=== PATIENT | female | born 1975 | race Hispanic/Latino ===

== ENCOUNTER → 2024-01-28 | Outpatient (CLI) | payer OTHER | END | disposition home or self-care (01) | LOC: RAH 11:45 | PROVIDERS: ATTEND Internal Medicine | DX: E04.1 Nontoxic single thyroid nodule (principal) | CPT/HCPCS: 76536 ==

== ENCOUNTER → 2025-03-18 | Outpatient (CLI) | payer OTHER ==
--- NOTE | 2025-03-19 05:55 | HMCIMG ---
EXAM: CR Right Knee, 3 views. CLINICAL HISTORY: Pain. COMPARISON: None provided. FINDINGS: No acute fracture or aggressive appearing osseous lesion. Joint spaces is reduced. Osteophytic lipping of articular margin is noted. Generalized osteopenia is seen. There is no joint effusion appreciated. The soft tissues are unremarkable. IMPRESSION: 1. No acute osseous abnormality. Osteoarthritis. /[place]
== END | disposition home or self-care (01) ==
LOC: RAH 15:23
PROVIDERS: ATTEND Internal Medicine
DX: S83.241A Other tear of medial meniscus, current injury, right knee, initial encounter (principal); M23.91 Unspecified internal derangement of right knee; M17.11 Unilateral primary osteoarthritis, right knee; M25.761 Osteophyte, right knee; M85.88 Other specified disorders of bone density and structure, other site; X58.XXXA Exposure to other specified factors, initial encounter; Y93.89 Activity, other specified; Y92.89 Other specified places as the place of occurrence of the external cause; Y99.8 Other external cause status
CPT/HCPCS: 73560

== ENCOUNTER → 2025-03-25 | Outpatient (CLI) | payer OTHER ==
--- NOTE | 2025-03-25 22:27 | HMCIMG ---
EXAM: MR KNEE RIGHT CLINICAL HISTORY: other tear of medial meniscus, current injury, initial. TECHNIQUE: Multiplanar magnetic resonance images of the right knee obtained. CONTRAST: NONE COMPARISON: A prior radiograph of the right knee dated 03/19/2025 is available for comparison which demonstrated presence of osteoarthritic changes without acute abnormality. The present MRI has been performed to evaluate further. 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 Tear of the posterior meniscal root as well. Thickening with intrasubstance edema of the medial meniscotibial and meniscofemoral ligaments, suggestive of mucoid degeneration. Presence of a parameniscal ossicle adjacent to the posterior horn of the medial meniscus, measuring 7 x 8 mm. Lateral meniscus is unremarkable. CRUCIATE LIGAMENTS: Anterior cruciate ligament: Thickening with intrasubstance edema involving the posteromedial and anterolateral bundles, which may represent myxoid degeneration. Posterior cruciate ligament: Moderate degree of mucoid degeneration, without tear. COLLATERAL LIGAMENTS: Medial collateral ligament: Superficial component is unremarkable. Lateral collateral ligamentous complex, inclusive of the popliteal tendon, are intact. JOINT: Moderate knee joint synovial effusion present. No synovial hypertrophy or intra-articular body. 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 Marginal osteophytes on the medial and lateral tibial and femoral condyles, superior and inferior poles of patella with spiking of the tibial intercondylar eminence. BONE: No acute fracture. Formation of multiple lobulated ganglion cyst in relation with the proximal tibiofibular joint, together measuring 4 x 2 x 2 cm in the visualized extent. 5 x 6 mm sized T1, T2 hypointense focus present within the medial femoral condyle, without perilesional edema, which may represent a bone island. Similar smaller focus measuring 3 x 4 mm is present in the lateral femoral condyle adjacent to the intercondylar groove. MUSCLES: Unremarkable. OTHER SOFT TISSUES: No popliteal cyst. IMPRESSION: 1. 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 2. 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 3. Moderate knee joint effusion. 4. 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 5. Tricompartmental degenerative arthritic changes. 6. Multilobulated ganglion cyst of the proximal tibiofibular joint. 7. Overall, the degenerative changes in the knee joint are stable since the prior x-ray examination dated March 19, 2025. /[place]
== END | disposition home or self-care (01) ==
LOC: RAH 03-18 15:39
PROVIDERS: ATTEND Internal Medicine
DX: S83.241A Other tear of medial meniscus, current injury, right knee, initial encounter (principal); M23.91 Unspecified internal derangement of right knee; M17.11 Unilateral primary osteoarthritis, right knee; M67.461 Ganglion, right knee; M94.261 Chondromalacia, right knee; M25.461 Effusion, right knee; R60.0 Localized edema; X58.XXXA Exposure to other specified factors, initial encounter; Y93.89 Activity, other specified; Y92.89 Other specified places as the place of occurrence of the external cause; Y99.8 Other external cause status
CPT/HCPCS: 73721